=== PATIENT | male | born 1945 | race Two or more races ===

== ENCOUNTER 2018-03-13 21:12 | Inpatient (IN) | payer MEDICARE, BC ==
[~2018-03-13] VITALS: Ht 165.1 cm; Wt 72.1 kg
--- NOTE | 2018-03-13 21:12 | NUR ---
"LOWER ABD PAIN/URGENCY TO USE THE BATHROOM BUT LITTLE URINE COMING OUT" NO BLOOD IN URINE. FEVER. PATIENT IS WITH FAMILY ABLE TO MAKE NEEDS KNOWN. VSS NO ACUTE DISTRESS NOTED AT THIS TIME. SKIN IS WARM AND INTACT. WILL CONTINUE TO MONITOR FOR ANY CHANGES DURING THE SHIFT.
--- NOTE | 2018-03-13 21:13 | NUR ---
ER SUNDAR GARCIA AT BEDSIDE FOR EVAL
--- NOTE | 2018-03-13 22:19 | NUR ---
BLADDER SCAN SHOWED APPROXIMATELY 60CC OF URINE. SUNDAR GARCIA MADE AWARE
--- NOTE | 2018-03-13 22:36 | NUR ---
EKG AT BEDSIDE
[2018-03-13] MEDS ORDERED: ONDANSETRON HCL/PF 4 MG/2 ML VIAL ONE (22:52)
--- NOTE | 2018-03-13 22:53 | NUR ---
CALLED DR KINSEY, LEFT A VOICEMAIL.
[2018-03-13] MEDS ORDERED: IV NS 0.9% 1,000 ML BAG IV ONE (23:00)
[2018-03-13] MEDS ORDERED: ONDANSETRON HCL/PF 4 MG/2 ML VIAL IVP ONE (23:00)
[2018-03-13] MEDS ORDERED: OFLO5DRO5 LEFTEYE (23:04)
[2018-03-13] MEDS ORDERED: DORZ10DR10 LEFTEYE (23:04)
[2018-03-13] MEDS ORDERED: BRIM5DRO3 RIGHTEYE (23:04)
[2018-03-13] MEDS ORDERED: PRED5DRO16 RIGHTEYE (23:04)
--- NOTE | 2018-03-13 23:07 | NUR ---
CHEST XRAY AT BEDSIDE
--- NOTE | 2018-03-13 23:50 | NUR ---
REPORT GIVEN TO PORTIA
[2018-03-14] VITALS: BP 140/82
[2018-03-14 00:05] VITALS: BP 140/82
--- NOTE | 2018-03-14 00:32 | NUR ---
RN MS ADMITTING NOTES PATIENT ARRIVED TO UNIT AT 0005 VIA GURNEY FROM ER ACCOMPANIED BY 2 DAUGHTERS, PATIENT WAS ABLE TO AMBULATE TO BED. RECEIVED PATIENT IN BED AT 0032 AWAKE ALERT AND ORIENTED X4 ABLE TO MAKE NEEDS KNOWN, CAMEROONIAN SPEAKER WITH SOME GUYANESE ABLE TO CARRY ON CONVERSATION AND MAKE NEEDS KNOWN. RESPIRATIONS EVEN AND UNLABORED WITH EQUAL RISE AND FALL CHEST, DENIES ANY PAIN OR DISCOMFORT AT THIS TIME, PATIENT ASSISTED TO BATHROOM UTILIZED TOILET AND WAS ABLE TO VOID AT THIS TIME. ORIENTED PATIENT TO STAFF AND CALL LIGHT AND BED, SAFETY PRECAUTIONS IN PLACE LOW, BED AND LOCKED WITH BILATERAL SIDERAILS UP. NOTED PATIENT IS STEADY UPON AMBULATING JUST NEEDS GUIDE DUE TO POOR VISION. BODY ASSESSMENT DONE, SKIN IS CLEAR AND INTACT, PATIENT BELONGING LIST DONE, MADE DAUGHTER AWARE TO TAKE HOME IMPORTANT CARDS AND BELONGINGS. AGREED PATIENT BROUGHT PERSONAL EYE DROPS TO HOSPITAL MED RECON DONE AND EYE DROPS PLACE IN PLASTIC BAG FOR PHARMACY PATIENT AND DAUGHTER YOBANY AWARE AND SIGNED RECEIPT. IV SITE NOTED TO RIGHT WRIST #18 INTACT AND PATENT, NO REDNESS, NO INFILTRATION PRESENT. TIO CARDOZO AWARE OF ADMISSION WITH NEW ORDERS. WILL CARRY OUT, FLUIDS OFFERED , URINAL OFFERED. ALL NEEDS ATTENDED AT THIS TIME, PATIENT REMAINS COMFORTABLE WILL CONTINUE TO MONITOR FOR ANY CHANGES.
[2018-03-14] MEDS ORDERED: ONDANSETRON HCL/PF 4 MG/2 ML VIAL IV PRN (01:30)
[2018-03-14] MEDS ORDERED: ACETAMINOPHEN 325 MG TABLET PO PRN (01:30)
[2018-03-14] MEDS ORDERED: CEFTRIAXONE 1 G VIAL ONE (01:56)
[2018-03-14] MEDS: CEFTRIAXONE 1 G in IV D5W 50 ML IV SCH ×2 (01:57→20:12)
[2018-03-14] MEDS: IV NS 0.9% 1,000 ML IV PRN ×2 (01:57→15:08)
[2018-03-14] MEDS ORDERED: CEFTRIAXONE 1 G VIAL IV SCH (02:00)
[2018-03-14] MEDS ORDERED: CEFTRIAXONE 1 G VIAL IM SCH ×2 (02:00)
[2018-03-14] MEDS: ENOXAPARIN SODIUM 40 MG/0.4 ML DISP.SYRIN SQ SCH ×2 (02:02→21:00)
[2018-03-14] MEDS ORDERED: LEVOFLOXACIN 500 MG /D5W 100ML 500 MG in PREMIX 1 EA IV SCH ×2 (02:30→03:00)
[2018-03-14 03:00] LABS: BASOPHILS % (AUTO) 0.1 % (0.0-2.0); HEMATOCRIT 40 % (39-51); LYMPHOCYTES # (AUTO) 1.4 /CMM (0.8-4.8); LYMPHOCYTES % (AUTO) 6.5 % (20.0-44.0); MEAN CORPUSCULAR HEMOGLOBIN 29 PG (26.0-33.0); MEAN CORPUSCULAR HGB CONC 33 g/dl (31.0-36.0); MEAN CORPUSCULAR VOLUME 90 fL (80-96); MONOCYTES # (AUTO) 1.7 /CMM (0.1-1.30); MONOCYTES % (AUTO) 8.1 % (2.0-12.0); NEUTROPHILS # (AUTO) 18.3 /CMM (1.8-8.9); NEUTROPHILS % (AUTO) 85.3 % (43.0-81.0); PLATELET COUNT (AUTO) 243 /CMM (150-450); RDW COEFFICIENT OF VARIATION 14.4 (11.5-15.0); RED BLOOD CELL COUNT(AUTO) 4.43 MIL/uL (4.5-6.0); WHITE BLOOD COUNT (AUTO) 21.4 K/uL (4.3-11.0)
[2018-03-14 03:11] LABS: CALCIUM, SERUM 6.9 mg/dL (8.5-10.1); CARBON DIOXIDE 20 mmol/L (21-32); CHLORIDE 104 mmol/L (98-107); CREATININE 1.6 mg/dL (0.6-1.3); GLUCOSE 143 mg/dL (74-106); POTASSIUM 3.9 mmol/L (3.5-5.1); SODIUM SERUM 135 mmol/L (136-145); UREA NITROGEN, BLOOD 28 mg/dL (7-18)
[2018-03-14] MEDS ORDERED: LEVOFLOXACIN 500 MG /D5W 100ML 100 ML IV ONE (03:31)
[2018-03-14 03:48] LABS: BAND % (MANUAL) 4 % (0.0-5.0); LYMPHOCYTES % (MANUAL) 8 % (16-48); MONOCYTES % (MANUAL) 7 % (0-11.0); NEUTROPHILS % (MANUAL) 81 (42-76)
--- NOTE | 2018-03-14 07:22 | NUR ---
RN MS NOTES PATIENT IN BED SLEEPING BUT EASILY AROUSABLE,ALERT AND ORIENTED X 3 ABLE TO MAKE NEEDS KNOWN. VERBALLY RESPONSIVE, RESPIRATIONS EVEN AND UNLABORED WITH EQUAL RISE AND FALL OF CHEST, PATIENT DENIES ANY PAIN OR DISCOMFORT AT THIS TIME, PATIENT IS ABLE TO VOID WITH OUT ANY DIFFICULTIES AT THIS TIME, NO HEMATURIA NOTED,FLUIDS OFFERED TOLERATED, ASSISTED TO THE BATHROOM. IV SITE TO RIGHT FA INTACT AND PATENT WITH IVF FLUID RUNNING, NO REDNESS, NO INFILTRATION PRESENT, PATIENT REMAINS COMFORTABLE AT THIS TIME, WILL CONTINUE TO MONITOR AND ENDORSE TO NEXT SHIFT.
--- NOTE | 2018-03-14 07:34 | NUR ---
MS RN OPENING NOTES RECEIVED PATIENT IN STABLE CONDITION. PATIENT IS RESTING IN BED. IN NO APPARENT DISTRESS. BEDSIDE RAILS ARE UPX2. BED IS LOCKED AND LOWERED. CALL LIGHT IS WITHIN REACH. IV LINE IS INTACT AND PATENT. WILL CONTINUE TO MONITOR.
[2018-03-14 08:00] VITALS: BP 138/87
[2018-03-14 08:20] LABS: FREE PSA 0.22 ng/mL (0.00-45); PROSTATE SPECIFIC ANTIGEN SCR 2.57 ng/mL (0.00-4.00)
[2018-03-14] MEDS: PANTOPRAZOLE 40 MG TABLET.DR PO SCH (08:23)
--- NOTE | 2018-03-14 11:14 | NUR ---
NOTIFIED DR. KINSEY THAT MED RECON HAS BEEN INPUT IN THE COMPUTER AND NEEDS TO BE REVIEWED. DR KINSEY IS AWARE.
[2018-03-14 16:00] VITALS: BP 127/81
--- NOTE | 2018-03-14 18:11 | NUR ---
MS RN CLOSING NOTES PATIENT IS RESTING IN BED. IN NO APPARENT DISTRESS. BEDSIDE RAILS ARE UPX2. BED IS LOCKED AND LOWERED. CALL LIGHT IS WITHIN REACH. ALL NEEDS WERE MET. IV LINE IS INTACT AND PATENT. WILL ENDORSE CARE TO MACHINING MANAGER NURSE FOR FELIX.
--- NOTE | 2018-03-14 19:35 | NUR ---
MS/WINE CONSULTANT; RECEIVED PT IN BED WITH EYES CLOSED. PT'S FAMILY MEMBERS AT THE BED SIDE VISITED. PER DAUGHTER YOBANY SAID PT IS BETTER TODAY WITH THE ANTIBIOTIC. THE DAUGHTER YOBANY TALKED TO THE PT AND PT WOKE UP AND VERBALLY RESPONSIVE. DENIES PAIN. BREATHING NON LABORED. PER DAUGHTER PT HAS BEEN VOIDING GOOD USED URINAL. IVF ON RT HAND INTACT NS AT 100 ML / HOUR. BED ON LOWER POSITION AND LOCKED FOR SAFETY. SIDE RAILS X 2 ARE UP FOR SAFETY. CALL LIGHT WITHIN REACH. WILL CONTINUE TO MONITOR.
[2018-03-14 20:00] VITALS: BP 138/75
--- NOTE | 2018-03-14 21:00 | NUR ---
MS/AERIAL PHOTOGRAPH INTERPRETER; DUE PO MED GIVEN. Addendum: 03/15/18 at 0108 by JOSE E VALDIVIA AERIAL PHOTOGRAPH INTERPRETER ERROR CHARTING NOT PO MED. AT 2100 LOVENOX 40 MG SQ GIVEN.
--- NOTE | 2018-03-14 22:00 | NUR ---
MS /INDUSTRIAL CHEMISTRY TEACHER; SLEEPING AT THIS TIME. BREATHING NON LABORED. WILL CONTINUE TO MONITOR. Addendum: 03/15/18 at 0111 by JOSE E VALDIVIA INDUSTRIAL CHEMISTRY TEACHER WRONG CHARTING. AT 2200 PT WAS AWAKE HOLDING THE URINAL WITH URINE 200 ML CLEAR YELLOW. I EMPTY THE URINAL. PT WAS REPOSITIONED WITH THE HELP OF THE CAN. RODRIGUEZ. RE CHECKED 97.5 ORALLY. THE PT SAID I AM OK NOW. AND HE WENT BACK TO SLEEP. WILL CONTINUE TO MONITOR.
--- NOTE | 2018-03-15 | NUR ---
MS/TURNING MACHINE OPERATOR; SLEEPING AT THIS TIME. BREATHING NON LABORED.
--- NOTE | 2018-03-15 02:00 | NUR ---
MS/SCIENCE EDITOR; PT IN BED SLEEPING. BREATHING NON LABORED. IVF ON PROGRESS. WILL CONTINUE TO MONITOR.
[2018-03-15] MEDS: IV NS 0.9% 1,000 ML IV PRN ×2 (02:19→19:36)
--- NOTE | 2018-03-15 04:00 | NUR ---
MS/EXCEL EXPERT; PT IN BED SLEEPING. BREATHING NON LABORED. IVF ON PROGRESS. WILL CONTINUE TO MONITOR.
--- NOTE | 2018-03-15 05:00 | NUR ---
MS/SOCIAL MEDIA EDITOR; PT IN BED SLEEPING AT THIS TIME. BREATHING NON LABORED. IVF ON PROGRESS. WILL CONTINUE TO MONITOR.
[2018-03-15] MEDS ORDERED: LEVOFLOXACIN 750 MG /D5W 150ML 750 MG in PREMIX 1 EA IV SCH (06:00)
--- NOTE | 2018-03-15 06:32 | NUR ---
MS/TANK TERMINAL GAUGER; SLEPT FAIRLY. IVF ON PROGRESS. HAS BEEN VOIDING GOOD USED URINAL. DENIES PAIN . CONTINUE TO MONITOR. CALL LIGHT AND URINAL WITHIN REACH. WILL ENDORSE TO THE DAY SHIFT NURSE FOR CONTINUITY OF CARE.
[2018-03-15 07:14] LABS: CALCIUM, SERUM 7.9 mg/dL (8.5-10.1); CARBON DIOXIDE 23 mmol/L (21-32); CHLORIDE 109 mmol/L (98-107); CREATININE 1.4 mg/dL (0.6-1.3); GLUCOSE 127 mg/dL (74-106); MAGNESIUM 2.4 mg/dL (1.8-2.4); POTASSIUM 3.9 mmol/L (3.5-5.1); SODIUM SERUM 143 mmol/L (136-145); UREA NITROGEN, BLOOD 18 mg/dL (7-18)
--- NOTE | 2018-03-15 07:32 | NUR ---
MS RN OPENING NOTES RECEIVED PATIENT IN STABLE CONDITION. IN NO APPARENT DISTRESS. BEDSIDE RAILS ARE UPX2. BED IS LOCKED AND LOWERED. CALL LIGHT IS WITHIN REACH. IV LINE IS INTACT AND PATENT. WILL CONTINUE TO MONITOR.
[2018-03-15] MEDS: PANTOPRAZOLE 40 MG TABLET.DR PO SCH (07:39)
[2018-03-15 08:00] VITALS: BP 116/78
[2018-03-15 09:28] LABS: BASOPHILS % (AUTO) 0.1 % (0.0-2.0); EOSINOPHILS % (AUTO) 0.4 % (0.0-6.0); HEMATOCRIT 42 % (39-51); HEMOGLOBIN 13.8 g/dL (13.5-17.5); MEAN CORPUSCULAR HEMOGLOBIN 30 PG (26.0-33.0); MEAN CORPUSCULAR HGB CONC 33 g/dl (31.0-36.0); MEAN CORPUSCULAR VOLUME 91 fL (80-96); MONOCYTES # (AUTO) 1.2 /CMM (0.1-1.30); MONOCYTES % (AUTO) 7.2 % (2.0-12.0); NEUTROPHILS # (AUTO) 13.1 /CMM (1.8-8.9); NEUTROPHILS % (AUTO) 80.3 % (43.0-81.0); PLATELET COUNT (AUTO) 258 /CMM (150-450); RED BLOOD CELL COUNT(AUTO) 4.62 MIL/uL (4.5-6.0); WHITE BLOOD COUNT (AUTO) 16.3 K/uL (4.3-11.0)
[2018-03-15] MEDS: DORZOLAMIDE OPTH 2% 10 ML BOTTLE LEFTEYE SCH ×4 (10:00→21:00)
[2018-03-15 10:23] LABS: BAND % (MANUAL) 7 % (0.0-5.0); LYMPHOCYTES % (MANUAL) 14 % (16-48); MONOCYTES % (MANUAL) 13 % (0-11.0); NEUTROPHILS % (MANUAL) 66 (42-76)
--- NOTE | 2018-03-15 10:45 | NUR ---
CALLED PHARMACY TO PROVIDE PATIENTS EYEDROPS. TRUSOPT 2%, BRIMONIDINE TARTRATE 0.2%, AND PRED FORTE 1%. PHARMACY WILL PROVIDE.
[2018-03-15] MEDS: BRIMONIDINE TARTRATE OPHT SOLN 5 ML BOTTLE RIGHTEYE SCH ×2 (11:00→21:00)
[2018-03-15] MEDS: prednisoLONE ACET 1% OPHT DROP 5 ML BOTTLE RIGHTEYE SCH ×2 (12:02→17:32)
--- NOTE | 2018-03-15 12:55 | NUR ---
CALLED PHARMACY TO INFORM THEM THAT BRIMONIDINE TARTRATE 0.2% AND DORZOLAMIDE 2% HAS NOT BEEN PROVIDED. PHARMACY WILL PROVIDE.
[2018-03-15 16:00] VITALS: BP 108/78
--- NOTE | 2018-03-15 18:57 | NUR ---
MS RN CLOSING NOTES PATIENT IS IN STABLE CONDITION. IN NO APPARENT DISTRESS. BEDSIDE RAILS ARE UPX2. BED IS LOCKED AND LOWERED. CALL LIGHT IS WITHIN REACH. ALL NEEDS WERE MET. IV LINE IS INTACT AND PATENT. WILL ENDORSE CARE TO IT INFRASTRUCTURE PROJECT MANAGER NURSE FOR FELIX.
--- NOTE | 2018-03-15 19:30 | NUR ---
MS/PAVING FOREMAN; RECEIVED PT IN BED AWAKE, ALERT AND ORIENTED. IVF ON PROGRESS. DENIES PAIN. FAMILY MEMBERS VISITED AT THE BED SIDE. BED ON LOWER POSITION AND LOCKED FOR SAFETY. SIDE ARE UP X2 FOR SAFETY. PT INSTRUCTED TO CALL FOR HELP AND CALL LIGHT AND URINAL WITHIN REACH. WILL CONTINUE TO MONITOR.
[2018-03-15 20:00] VITALS: BP 155/82
--- NOTE | 2018-03-15 21:00 | NUR ---
MS/COMPUTER SYSTEMS INTEGRATOR; TRUSOPT 2% 1 GTT QID LT EYE PT REFUSED HE SAID THE DAY SHIFT RN GAVE TO HIM ALREADY. BRIMONIDINE TARTRATE 0.2 % 1 GTT TO RT EYE Q8 NOT GIVEN NOT AVAILABLE.
[2018-03-15] MEDS: ENOXAPARIN SODIUM 40 MG/0.4 ML DISP.SYRIN SQ SCH (21:31)
[2018-03-15] MEDS: CEFTRIAXONE 1 G in IV D5W 50 ML IV SCH (22:59)
--- NOTE | 2018-03-16 04:00 | NUR ---
MS/BONDERIZER; PT AWAKE NO C/O PAIN. VOIDING 400 ML CLEAR YELLOW URINE. USED URINAL. HR CHECKED MANUALLY 72 / MINUTE. PT BACK TO SLEEP.
[2018-03-16] MEDS: BRIMONIDINE TARTRATE OPHT SOLN 5 ML BOTTLE RIGHTEYE SCH ×3 (05:00→21:00)
--- NOTE | 2018-03-16 07:02 | NUR ---
MS/MITOCHONDRIAL DISORDERS COUNSELOR; SLEPT FAIRLY. VOIDING YELLOW URINE. DENIES PAIN. WILL ENDORSE TO THE DAY SHIFT NURSE.
--- NOTE | 2018-03-16 07:05 | NUR ---
RN OPENING NOTES RECEIVED PT. IN BED A&OX4. BREATHING UNLABORED AND EVENLY ON ROOM AIR. NO S/S OF ACUTE DISTRESS. IV FLUIDS RUNNING AT 50 ML/HR. URINAL IS AT BEDSIDE WITHIN REACH. BED IS IN LOWEST, AND LOCKED POSITION. 2 SIDE RAILS UP, AND INSTRUCTED PT. TO USE CALL LIGHT FOR ASSISTANCE. ALL NEEDS MET. WILL CONTINUE TO ASSESS AND MONITOR.
[2018-03-16 08:00] VITALS: BP 118/70
[2018-03-16] MEDS: PANTOPRAZOLE 40 MG TABLET.DR PO SCH (08:00)
[2018-03-16] MEDS: DORZOLAMIDE OPTH 2% 10 ML BOTTLE LEFTEYE SCH ×4 (08:03→21:23)
[2018-03-16] MEDS: prednisoLONE ACET 1% OPHT DROP 5 ML BOTTLE RIGHTEYE SCH ×3 (08:03→17:30)
[2018-03-16 08:12] LABS: CALCIUM, SERUM 7.9 mg/dL (8.5-10.1); CARBON DIOXIDE 23 mmol/L (21-32); CHLORIDE 108 mmol/L (98-107); CREATININE 1.3 mg/dL (0.6-1.3); GLUCOSE 119 mg/dL (74-106); MAGNESIUM 2.1 mg/dL (1.8-2.4); POTASSIUM 3.4 mmol/L (3.5-5.1); SODIUM SERUM 142 mmol/L (136-145); UREA NITROGEN, BLOOD 15 mg/dL (7-18)
[2018-03-16] MEDS ORDERED: LORAZEPAM 0.5 MG TABLET PO PRN (08:30)
[2018-03-16] MEDS ORDERED: POTASSIUM CHLORIDE 20 MEQ POWDER PACKET PO SCH (11:00)
[2018-03-16 16:00] VITALS: BP 122/74
--- NOTE | 2018-03-16 19:30 | NUR ---
MS RN OPENING NOTES PATIENT IN BED A&OX4. FAMILY AT BED SIDE.BREATHING UNLABORED, PT ON ROOM AIR. NO ACUTE DISTRESS OR COMPLAIN OF PAIN AT THIS TIME. IV FLUIDS RUNNING AT 50 ML/HR, IV LINE INTACT AND PATENT. BED IS IN LOWEST LOCKED POSITION.SIDE RAILS X2 UP, CALL LIGHT WITH IN REACH. WILL CONTINUE TO MONITOR.
--- NOTE | 2018-03-16 19:49 | NUR ---
RN CLOSING NOTES PT. IS IN BED A&OX4. FAMILY IS AT BEDSIDE. BREATHING UNLABORED AND EVENLY ON ROOM AIR. NO S/S OF ACUTE DISTRESS. URINAL IS AT BEDSIDE WITHIN REACH. BED IS IN LOWEST, AND LOCKED POSITION. 2 SIDE RAILS UP, AND INSTRUCTED PT. TO USE CALL LIGHT FOR ASSISTANCE. ALL NEEDS MET. WILL ENDORSE REPORT TO NURSE.
[2018-03-16 20:00] VITALS: BP 108/71
--- NOTE | 2018-03-16 21:00 | NUR ---
BRIMONIDINE EYE DROPS NOT GIVEN AT 2100. ITS HOME MED AND NOT AVAILABLE ON UNIT
[2018-03-16] MEDS: CEFTRIAXONE 1 G in IV D5W 50 ML IV SCH (21:23)
[2018-03-16] MEDS: ENOXAPARIN SODIUM 40 MG/0.4 ML DISP.SYRIN SQ SCH (21:24)
[2018-03-17] MEDS: BRIMONIDINE TARTRATE OPHT SOLN 5 ML BOTTLE RIGHTEYE SCH ×3 (05:00→20:38)
--- NOTE | 2018-03-17 06:47 | NUR ---
MS RN CLOSING NOTES PATIENT IN BED A&OX4.BREATHING UNLABORED, PT ON ROOM AIR. NO ACUTE DISTRESS OR COMPLAIN OF PAIN AT THIS TIME. IV FLUIDS D/C, IV LINE R WRIST G18 INTACT AND PATENT. BED IS IN LOWEST LOCKED POSITION.SIDE RAILS X2 UP, CALL LIGHT WITH IN REACH. ALL NEEDS ANTICIPATED.WILL ENDORSE TO THE NEXT SHIFT FOR FELIX.
[2018-03-17 08:00] VITALS: BP 132/85
[2018-03-17 08:02] LABS: BASOPHILS % (AUTO) 0.3 % (0.0-2.0); EOSINOPHILS % (AUTO) 2.8 % (0.0-6.0); HEMATOCRIT 41 % (39-51); HEMOGLOBIN 13.8 g/dL (13.5-17.5); MEAN CORPUSCULAR HEMOGLOBIN 30 PG (26.0-33.0); MEAN CORPUSCULAR HGB CONC 34 g/dl (31.0-36.0); MEAN CORPUSCULAR VOLUME 91 fL (80-96); MONOCYTES # (AUTO) 0.2 /CMM (0.1-1.30); MONOCYTES % (AUTO) 1.4 % (2.0-12.0); NEUTROPHILS # (AUTO) 8.5 /CMM (1.8-8.9); NEUTROPHILS % (AUTO) 77.5 % (43.0-81.0); PLATELET COUNT (AUTO) 341 /CMM (150-450); RDW COEFFICIENT OF VARIATION 14.8 (11.5-15.0); RED BLOOD CELL COUNT(AUTO) 4.55 MIL/uL (4.5-6.0)
[2018-03-17 08:08] LABS: CALCIUM, SERUM 8.1 mg/dL (8.5-10.1); CARBON DIOXIDE 25 mmol/L (21-32); CHLORIDE 110 mmol/L (98-107); CREATININE 1.2 mg/dL (0.6-1.3); GLUCOSE 103 mg/dL (74-106); POTASSIUM 3.5 mmol/L (3.5-5.1); SODIUM SERUM 143 mmol/L (136-145); UREA NITROGEN, BLOOD 18 mg/dL (7-18)
[2018-03-17] MEDS: PANTOPRAZOLE 40 MG TABLET.DR PO SCH (09:30)
[2018-03-17] MEDS: prednisoLONE ACET 1% OPHT DROP 5 ML BOTTLE RIGHTEYE SCH ×3 (09:31→18:24)
[2018-03-17] MEDS: DORZOLAMIDE OPTH 2% 10 ML BOTTLE LEFTEYE SCH ×4 (09:31→20:37)
[2018-03-17] MEDS ORDERED: TAMSULOSIN 0.4 MG CAP.SR.24H PO SCH (10:30)
[2018-03-17] MEDS ORDERED: POTASSIUM CHLORIDE 20 MEQ TAB.PRT.SR PO ONE (10:30)
[2018-03-17 16:00] VITALS: BP 125/68
--- NOTE | 2018-03-17 18:30 | NUR ---
FAMILY IN VSITING ALL DAY,NO COMPLAINTS PER PT.
--- NOTE | 2018-03-17 19:30 | NUR ---
RN MS NOTES RECEIVED PATIENT RESTING IN BED. EASILY AROUSABLE. ALERT AND ORIENTED X4. FAMILY AT BEDSIDE. BREATHING EVEN AND UNLABORED. NO SOB NOTED. NO COMPLAINTS OF PAIN OR DISCOMFORT. IV ON RIGHT WRIST #18 INTACT AND PATENT. SKIN DRY AND WARM TO TOUCH. ALL OTHER NEEDS ATTENDED TO. CALL LIGHT WITHIN REACH. BED ON LOWEST LOCKED POSITION. WILL CONTINUE TO MONITOR.
[2018-03-17] MEDS: CEFTRIAXONE 1 G in IV D5W 50 ML IV SCH (20:34)
[2018-03-17] MEDS: ENOXAPARIN SODIUM 40 MG/0.4 ML DISP.SYRIN SQ SCH (20:34)
[2018-03-18] MEDS: BRIMONIDINE TARTRATE OPHT SOLN 5 ML BOTTLE RIGHTEYE SCH ×2 (04:53→15:46)
[2018-03-18 06:04] VITALS: BP 148/75
--- NOTE | 2018-03-18 06:36 | NUR ---
RN MS CLOSING NOTES PATIENT RESTING IN BED. EASILY AROUSABLE. ALERT AND ORIENTED X4 WHEN AWAKE. BREATHING EVEN AND UNLABORED. NO SOB NOTED. NO COMPLAINTS OF PAIN OR DISCOMFORT. NO FACIAL GRIMACING. IV ON RIGHT WRIST #18 INTACT AND PATENT. SKIN DRY AND WARM TO TOUCH. KEPT CLEAN AND COMFORTABLE. ALL OTHER NEEDS ATTENDED TO. CALL LIGHT WITHIN REACH. BED ON LOWEST LOCKED POSITION. WILL ENDORSE TO ONCOMING NURSE FOR CONTINUITY OF CARE.
--- NOTE | 2018-03-18 07:57 | NUR ---
RN MS NOTES RECEIVED PATIENT RESTING IN BED. AWAKE AND ORIENTED X4, VERBALLY RESPONSIVE. RESPIRATIONS EVEN AND UNLABORED. NO SOB NOTED. DENIES PAIN OR DISCOMFORT AT THIS TIME. IV TO RIGHT WRIST #18 INTACT AND PATENT. SAFETY MEASURES RENDERED, CALL LIGHT WITHIN REACH. BED ON LOWEST LOCKED POSITION. WILL CONTINUE TO MONITOR.
[2018-03-18 08:00] VITALS: BP 144/78
[2018-03-18] MEDS: PANTOPRAZOLE 40 MG TABLET.DR PO SCH (08:23)
[2018-03-18] MEDS: DORZOLAMIDE OPTH 2% 10 ML BOTTLE LEFTEYE SCH ×2 (08:27→15:46)
[2018-03-18] MEDS: prednisoLONE ACET 1% OPHT DROP 5 ML BOTTLE RIGHTEYE SCH ×2 (08:27→15:47)
--- NOTE | 2018-03-18 16:00 | NUR ---
MS/RN D/C NOTE PATIENT DUE FOR DISCHARGE, ORDERS RECEIVED AND REVIEWED. MEDICATION RECONCILIATION DONE, PRESCRIPTION ORDER FAXED TO PHARMACY. DISCUSSED DISCHARGE INSTRUCTIONS WITH PATIENT AND FAMILY, ALL DISCHARGE FORMS COMPLETED, SIGNED AND PLACED A COPY IN CHART. IV REMOVED AND COVERED PROPERTY. BELONGING LIST COMPLETED, SIGNED AND RETURNED TO PATIENT. PATIENT LEFT FACILITY IN STABLE CONDITION WITH FAMILY VIA PRIVATE CAR
== END 2018-03-18 15:50 | disposition home or self-care (01) | DRG 871 ==
LOC: ER 21:13 → MED 23:41
PROVIDERS: ADMIT Legal Medicine; ATTEND Legal Medicine
DX: A41.9 Sepsis, unspecified organism (principal); N17.0 Acute kidney failure with tubular necrosis; N39.0 Urinary tract infection, site not specified; N13.8 Other obstructive and reflux uropathy; N13.9 Obstructive and reflux uropathy, unspecified; H40.9 Unspecified glaucoma; Z79.899 Other long term (current) drug therapy; N40.1 Benign prostatic hyperplasia with lower urinary tract symptoms; H26.9 Unspecified cataract
CPT/HCPCS: 36415; 71045-TC; 76770-TC; 80048-TC; 83605-TC; 83735-TC; 84153-TC; 84154-TC; 85025-TC; 87040-TC; 87081-TC; 87086-TC; A4216; A4606; J0696; J1650; J1956; J2405; J7030; J7040; J7060; Z7610

== ENCOUNTER 2022-05-03 19:41 | Emergency (ER) | payer MEDICARE, BC ==
[~2022-05-03] VITALS: Ht 165.1 cm; Wt 68.9 kg
[~2022-05-03 19:41] MED LIST: BRIM5DRO3 RIGHTEYE; DORZ10DR10 LEFTEYE; OFLO5DRO5 LEFTEYE; PRED5DRO16 RIGHTEYE
--- NOTE | 2022-05-03 21:16 | NUR ---
TO ER BED 3. BIBDAUGHTER FROM HOME C/O BILATERAL LEG SWELLING & FEET PAIN X1 WEEK. PT IS ALERT AND ORIENTED. RR EVEN AND NON LABORED. CONNECTED TO MONITOR. AWAITNG MD OLMSTEAD
--- NOTE | 2022-05-03 21:17 | NUR ---
MACHINE DYER AT PT'S BEDSIDE
--- NOTE | 2022-05-03 21:25 | NUR ---
MS SQL DBA AT PT'S BEDSIDE
[2022-05-03 22:25] LABS: BASOPHILS # (AUTO) 0.1 K/uL (0.0-0.2); BASOPHILS % (AUTO) 0.6 % (0.0-2.0); EOSINOPHILS % (AUTO) 1.8 % (0.0-6.0); HEMATOCRIT 48 % (39-51); HEMOGLOBIN 15.5 g/dL (13.5-17.5); LYMPHOCYTES # (AUTO) 2.4 K/uL (0.8-4.8); LYMPHOCYTES % (AUTO) 25.5 % (20.0-44.0); MEAN CORPUSCULAR HGB CONC 33 g/dl (31.0-36.0); MEAN CORPUSCULAR VOLUME 89 fL (80-96); MONOCYTES # (AUTO) 0.8 K/uL (0.1-1.30); MONOCYTES % (AUTO) 8.6 % (2.0-12.0); NEUTROPHILS # (AUTO) 5.9 K/uL (1.8-8.9); NEUTROPHILS % (AUTO) 63.5 % (43.0-81.0); PLATELET COUNT (AUTO) 339 K/uL (150-450); RED BLOOD CELL COUNT(AUTO) 5.37 MIL/uL (4.5-6.0); WHITE BLOOD COUNT (AUTO) 9.3 K/uL (4.3-11.0)
[2022-05-03] MEDS ORDERED: hydrALAZINE HCL IV 20 MG VIAL ONE (22:27)
[2022-05-03] MEDS ORDERED: hydrALAZINE HCL IV 20 MG VIAL IV ONE (22:30)
[2022-05-03] MEDS ORDERED: MORPHINE SULFATE INJ 2 MG/ML DISP.SYRIN IV ONE (22:30)
[2022-05-03] MEDS ORDERED: methylPREDNISolone SOD SUCC 125 MG/2ML VIAL IV ONE (22:30)
[2022-05-03] MEDS ORDERED: MORPHINE SULFATE INJ 2 MG/ML DISP.SYRIN ONE (22:38)
[2022-05-03] MEDS ORDERED: methylPREDNISolone SOD SUCC 125 MG/2ML VIAL ONE (22:38)
[2022-05-03 22:40] LABS: CALCIUM, SERUM 9.5 mg/dL (8.5-10.1); CARBON DIOXIDE 23 mmol/L (21-32); CHLORIDE 105 mmol/L (98-107); CREATININE 0.8 mg/dL (0.6-1.3); GLUCOSE 103 mg/dL (74-106); POTASSIUM 3.9 mmol/L (3.5-5.1); SODIUM SERUM 139 mmol/L (136-145); UREA NITROGEN, BLOOD 12 mg/dL (7-18)
[2022-05-03] MEDS ORDERED: IBUP-1957 PO (23:39)
[2022-05-03] MEDS ORDERED: CYCL10TA9 PO (23:39)
--- NOTE | 2022-05-03 23:57 | NUR ---
Patient discharged to home in stable condition. Written and verbal after care instructions given. Patient verbalizes understanding of instruction.
[2022-05-04] MEDS ORDERED: IBUP-1957 PO (00:05)
[2022-05-04] MEDS ORDERED: CYCL10TA9 PO (00:05)
[2022-05-04 00:48] VITALS: BP 156/92
== END 2022-05-04 00:49 | disposition home or self-care (01) ==
LOC: ER 19:49
DX: M54.41 Lumbago with sciatica, right side (principal); Z90.89 Acquired absence of other organs; Z79.899 Other long term (current) drug therapy
CPT/HCPCS: 99285; 96374; 71045; 96375; 93005; 85025; 80048; 36415; 83880; J0360; J2930; J2270

== ENCOUNTER 2025-01-22 09:42 | Inpatient (IN) | payer BC, MEDICARE ==
[~2025-01-22] VITALS: Ht 165.1 cm; Wt 62.6 kg
[2025-01-22] VITALS (25 sets, daily range): BP systolic 87–153; BP diastolic 47–88; TEMP 98–98.6; O2SAT 20–98
[~2025-01-22 09:42] MED LIST changes: +BRIM5DRO3 LEFTEYE; -BRIM5DRO3 RIGHTEYE; +CYCL10TA9 PO; +DORZ10DR10 EACHEYE; -DORZ10DR10 LEFTEYE; +IBUP-1957 PO
[2025-01-22] MEDS ORDERED: DILTIAZEM HCL 25 MG IV ONE (10:07)
[2025-01-22] MEDS: DILTIAZEM HCL 25 MG IV IVP ONE (10:13)
[2025-01-22 10:14] LABS: BASOPHILS # (AUTO) 0.1 K/uL (0.0-0.2); BASOPHILS % (AUTO) 0.3 % (0.0-2.0); EOSINOPHILS % (AUTO) 0.3 % (0.0-6.0); HEMATOCRIT 51 % (39-51); HEMOGLOBIN 16.5 g/dL (13.5-17.5); LYMPHOCYTES # (AUTO) 2.1 K/uL (0.8-4.8); LYMPHOCYTES % (AUTO) 13.8 % (20.0-44.0); MEAN CORPUSCULAR HEMOGLOBIN 29 PG (26.0-33.0); MEAN CORPUSCULAR HGB CONC 33 g/dl (31.0-36.0); MEAN CORPUSCULAR VOLUME 88 fL (80-96); MONOCYTES # (AUTO) 0.9 K/uL (0.1-1.30); MONOCYTES % (AUTO) 6.3 % (2.0-12.0); NEUTROPHILS # (AUTO) 11.8 K/uL (1.8-8.9); NEUTROPHILS % (AUTO) 79.3 % (43.0-81.0); PLATELET COUNT (AUTO) 303 K/uL (150-450); RED BLOOD CELL COUNT(AUTO) 5.76 MIL/uL (4.5-6.0); RED CELL DISTRIBUTION WIDTH 15.9 % (11.5-15.0); WHITE BLOOD COUNT (AUTO) 14.9 K/uL (4.3-11.0)
[2025-01-22 10:29] LABS: CALCIUM, SERUM 9.4 mg/dL (8.5-10.1); CARBON DIOXIDE 24 mmol/L (21-32); CHLORIDE 102 mmol/L (98-107); CREATININE 1.9 mg/dL (0.6-1.3); GLUCOSE 178 mg/dL (74-106); POTASSIUM 4.4 mmol/L (3.5-5.1); SODIUM SERUM 141 mmol/L (136-145); UREA NITROGEN, BLOOD 14 mg/dL (7-18)
[2025-01-22] MEDS: DILTIAZEM HCL IV 125 MG in IV D5W 100 ML IV ONE (10:32)
[2025-01-22 10:36] LABS: NT-PRO BNP 115 pg/mL (0-125)
[2025-01-22] MEDS ORDERED: ROSU10TA2 PO (10:48)
[2025-01-22] MEDS ORDERED: TAMS-12 PO (10:48)
[2025-01-22] MEDS ORDERED: LOSA50TA39 PO (10:48)
[2025-01-22] MEDS ORDERED: GABA100C PO (10:48)
[2025-01-22] MEDS ORDERED: DORZ10DR11 EACHEYE (10:48)
[2025-01-22] MEDS ORDERED: TIMO5DRO31 EACHEYE (10:48)
[2025-01-22] MEDS ORDERED: Z GUARD REMEDY 4 OZ OINT TP PRN (13:30)
[2025-01-22] MEDS ORDERED: ZOLPIDEM TARTRATE 5 MG TABLET PO PRN (13:30)
[2025-01-22] MEDS ORDERED: ONDANSETRON HCL/PF 4 MG/2 ML VIAL IVP PRN (13:30)
[2025-01-22] MEDS ORDERED: ACETAMINOPHEN 325 MG TABLET PO PRN (13:30)
[2025-01-22] MEDS: IV LR 1000 ML 1,000 ML IV ONE (15:02)
[2025-01-22] MEDS: DILTIAZEM HCL IV 125 MG in IV NS 0.9% 100 ML IV PRN (15:31)
[2025-01-22] MEDS: ENOXAPARIN SODIUM 60 MG/0.6 ML DISP.SYRIN SQ SCH (16:17)
[2025-01-22] MEDS: GABAPENTIN 100 MG CAPSULE PO SCH (16:18)
[2025-01-22] MEDS: TAMSULOSIN 0.4 MG CAP.SR.24H PO SCH (16:18)
[2025-01-22] MEDS: DIGOXIN INJ 0.5 MG/2 ML AMPUL IV SCH (17:42)
[2025-01-22] MEDS: DRONEDARONE HYDROCHLORIDE 400 MG TABLET PO SCH (18:14)
[2025-01-22 18:43] LABS: APPEARANCE,URINE CLEAR (CLEAR); BILIRUBIN,URINE NEGATIVE (NEGATIVE); BLOOD, URINE TRACE-INTA Ery/uL (NEGATIVE); COLOR,URINE YELLOW (YELLOW); KETONES,URINE TRACE mg/dL (NEGATIVE); LEUKOCYTE ESTERASE ,URINE NEGATIVE (NEGATIVE); NITRITE, URINE NEGATIVE (NEGATIVE); PROTEIN,URINE NEGATIVE (NEGATIVE); UGLUCOSE NEGATIVE (NEGATIVE); UROBILINOGEN,URINE 0.2 EU/dL (0.2)
[2025-01-22 18:48] LABS: ADD URINE CULTURE NO; BACTERIA,URINE Few /HPF (None Seen); RBC,URINE 0-2 /HPF (0-2); SQUAMOUS EPITHELIAL CELL,UR Few /HPF (None Seen); WBC,URINE 0-2 /HPF (0-3)
[2025-01-22 20:11] LABS: THYROID STIMULATING HORMONE 0.51 uIU/mL (0.358-3.74)
[2025-01-22] MEDS: METOPROLOL TARTRATE 25 MG TABLET PO SCH (21:27)
[2025-01-23] VITALS (33 sets, daily range): BP systolic 93–150; BP diastolic 53–83; TEMP 96.8–98.6; O2SAT 94–99
[2025-01-23 04:45] LABS: BASOPHILS # (AUTO) 0.1 K/uL (0.0-0.2); BASOPHILS % (AUTO) 0.7 % (0.0-2.0); EOSINOPHILS # (AUTO) 0.1 K/uL (0.0-0.7); EOSINOPHILS % (AUTO) 1.4 % (0.0-6.0); HEMATOCRIT 45 % (39-51); HEMOGLOBIN 15.1 g/dL (13.5-17.5); LYMPHOCYTES # (AUTO) 2.7 K/uL (0.8-4.8); LYMPHOCYTES % (AUTO) 38.6 % (20.0-44.0); MEAN CORPUSCULAR HEMOGLOBIN 29 PG (26.0-33.0); MEAN CORPUSCULAR HGB CONC 33 g/dl (31.0-36.0); MEAN CORPUSCULAR VOLUME 87 fL (80-96); MONOCYTES # (AUTO) 0.6 K/uL (0.1-1.30); MONOCYTES % (AUTO) 9.1 % (2.0-12.0); NEUTROPHILS # (AUTO) 3.5 K/uL (1.8-8.9); NEUTROPHILS % (AUTO) 50.2 % (43.0-81.0); PLATELET COUNT (AUTO) 285 K/uL (150-450); RED CELL DISTRIBUTION WIDTH 15.8 % (11.5-15.0)
[2025-01-23 05:00] LABS: ALBUMIN 3.3 g/dL (3.4-5.0); BILIRUBIN,TOTAL 0.8 mg/dL (0.2-1.0); CALCIUM, SERUM 8.8 mg/dL (8.5-10.1); MAGNESIUM 2.4 mg/dL (1.8-2.4); PHOSPHORUS 3.4 mg/dL (2.5-4.9); POTASSIUM 3.6 mmol/L (3.5-5.1); TOTAL PROTEIN, SERUM 6.9 g/dL (6.4-8.2)
[2025-01-23] MEDS: PANTOPRAZOLE 40 MG TABLET.DR PO SCH (08:15)
[2025-01-23] MEDS: ATORVASTATIN 40 MG TABLET PO SCH (08:15)
[2025-01-23] MEDS: APIXABAN 5 MG TABLET PO SCH (08:16)
[2025-01-23] MEDS: BRIMONIDINE TARTRATE OPHT SOLN 5 ML BOTTLE LEFTEYE SCH (08:17)
[2025-01-23] MEDS: TIMOLOL MAL/DORZOLAM HCL OPHTH 10 ML BOTTLE EACHEYE SCH (08:18)
[2025-01-23] MEDS ORDERED: DORZOLAMIDE OPTH 2% 10 ML BOTTLE EACHEYE SCH (09:00)
[2025-01-23] MEDS ORDERED: TIMOLOL 0.5% SOLN OPHTH 5 ML BOTTLE EACHEYE SCH (09:00)
[2025-01-23] MEDS ORDERED: IOHEXOL-350 100 ML VIAL IV ONE ×2 (10:32→10:57)
[2025-01-23] MEDS ORDERED: IV NS 0.9% 250 ML IV ONE ×2 (10:32→10:57)
[2025-01-23] MEDS ORDERED: METOPROLOL TARTRATE INJ 5 MG/5 ML AMPUL ONE (11:01)
[2025-01-23 12:05] LABS: CREATININE, URINE 165.3 MG/DL (30.0-125.0); URINE TOTAL PROTEIN 13.3 mg/dL (0-11.9)
[2025-01-24] VITALS: BP 121/68; TEMP 97.9; O2SAT 95
[2025-01-24 03:58] LABS: BASOPHILS # (AUTO) 0.1 K/uL (0.0-0.2); BASOPHILS % (AUTO) 0.8 % (0.0-2.0); EOSINOPHILS # (AUTO) 0.3 K/uL (0.0-0.7); EOSINOPHILS % (AUTO) 3.3 % (0.0-6.0); HEMATOCRIT 45 % (39-51); HEMOGLOBIN 15.2 g/dL (13.5-17.5); LYMPHOCYTES # (AUTO) 2.7 K/uL (0.8-4.8); LYMPHOCYTES % (AUTO) 32.7 % (20.0-44.0); MEAN CORPUSCULAR HEMOGLOBIN 30 PG (26.0-33.0); MEAN CORPUSCULAR HGB CONC 34 g/dl (31.0-36.0); MEAN CORPUSCULAR VOLUME 88 fL (80-96); MONOCYTES # (AUTO) 0.6 K/uL (0.1-1.30); MONOCYTES % (AUTO) 7.7 % (2.0-12.0); NEUTROPHILS # (AUTO) 4.5 K/uL (1.8-8.9); NEUTROPHILS % (AUTO) 55.5 % (43.0-81.0); PLATELET COUNT (AUTO) 266 K/uL (150-450); RED BLOOD CELL COUNT(AUTO) 5.13 MIL/uL (4.5-6.0); RED CELL DISTRIBUTION WIDTH 15.3 % (11.5-15.0); WHITE BLOOD COUNT (AUTO) 8.2 K/uL (4.3-11.0)
[2025-01-24 04:22] LABS: ALBUMIN 2.9 g/dL (3.4-5.0); BILIRUBIN,TOTAL 0.5 mg/dL (0.2-1.0); CALCIUM, SERUM 8.5 mg/dL (8.5-10.1); MAGNESIUM 2.4 mg/dL (1.8-2.4); PHOSPHORUS 3.7 mg/dL (2.5-4.9); TOTAL PROTEIN, SERUM 6.9 g/dL (6.4-8.2)
[2025-01-24 04:27] VITALS: BP 120/62; TEMP 98.1
[2025-01-24 08:00] VITALS: BP 144/76; TEMP 99; O2SAT 98
[2025-01-24 08:05] VITALS: BP 144/76; TEMP 99; O2SAT 98
[2025-01-24] MEDS ORDERED: APIX5TAB PO (09:57)
[2025-01-24] MEDS ORDERED: DRON400T6 PO (09:57)
[2025-01-24] MEDS ORDERED: ATOR40TA PO (10:01)
[2025-01-24 12:10] VITALS: BP 118/66; TEMP 98.9; O2SAT 98
== END 2025-01-24 12:33 | disposition home or self-care (01) | DRG 281 ==
LOC: ER 10:05 → ICU 14:03 → TELE1 01-23 16:27 → MEDSG1 01-24 10:01
PROVIDERS: ADMIT Nurse Practitioner Family; ATTEND Nurse Practitioner Family
DX: I48.91 Unspecified atrial fibrillation (principal); N17.9 Acute kidney failure, unspecified; I21.A1 Myocardial infarction type 2; G62.9 Polyneuropathy, unspecified; E78.5 Hyperlipidemia, unspecified; D72.829 Elevated white blood cell count, unspecified; N18.9 Chronic kidney disease, unspecified; Z90.49 Acquired absence of other specified parts of digestive tract; I12.9 Hypertensive chronic kidney disease with stage 1 through stage 4 chronic kidney disease, or unspecified chronic kidney disease; I25.10 Atherosclerotic heart disease of native coronary artery without angina pectoris; K59.00 Constipation, unspecified; Z87.891 Personal history of nicotine dependence; R73.9 Hyperglycemia, unspecified; N40.0 Benign prostatic hyperplasia without lower urinary tract symptoms; H54.8 Legal blindness, as defined in USA
CPT/HCPCS: 36415; 71045-TC; 75574; 76770-TC; 80048-TC; 80053-TC; 80061-TC; 81001; 82550-TC; 82570-TC; 83735-TC; 83880; 83970; 84100-TC; 84300-TC; 84439-TC; 84443-TC; 84484-TC; 85025-TC; 87081-TC; 93307-TC; A4223; G0378; J1160; J1650; J3490; J7030; J7050; J7060; J7120; Q9967